=== PATIENT | female | born 1950 | race Hispanic/Latino ===

== ENCOUNTER 2016-11-08 18:06 | Inpatient (IN) | payer BC, MEDICARE ==
--- NOTE | 2016-11-08 18:11 | C.PDOC ---
History Of Present Illness <Cherelle Rivero - Last Filed: 11/08/16 18:44> <Josef Rowan - Last Filed: 11/08/16 19:58> 66 y/o female presents to the ED for evaluation. Per EMS, pt went to urgent care for SOB where they did EKG showing concern for STEMI so they called EMS for transport to ED for further evaluation. Pt states she went to urgent care to have her blood pressure checked, doesn't know baseline pressure and as she was walking into , she felt SOB as it was hot outside. Urgent care performed EKG and sent patient to ED for further evaluation. Pt reports anxiety but otherwise is asymptomatic. Denies leg pain or swelling, chest pain, fever or any other complaints. Pt admits to only drinking alcohol on Sunday's after school is out. No PMHx or PSHx. EKG from urgent care reviewed. [facility] EKG reviewed, NSR 120. (Cherelle Rivero) History Per: Patient History/Exam Limitations: no limitations Severity: Mild Recent travel outside of the [place]: No Additional History Per: EMS <Cherelle Rivero - Last Filed: 11/08/16 18:44> <RowanJosef Barcenas - Last Filed: 11/08/16 19:58> Time Seen by Provider: 11/08/16 18:08 Past Medical History Reviewed: Historical Data, Nursing Documentation, Vital Signs Family History: States: Unknown Family Hx <Cherelle Rivero - Last Filed: 11/08/16 18:44> Review Of Systems Except As Marked, All Systems Reviewed And Found Negative. Constitutional: Negative for: Fever Cardiovascular: Negative for: Chest Pain Respiratory: Negative for: Shortness of Breath Gastrointestinal: Negative for: Vomiting Musculoskeletal: Negative for: Leg Pain Psych: Positive for: Anxiety <Cherelle Rivero - Last Filed: 11/08/16 18:44> Physical Exam - Physical Exam Appears: Non-toxic, No Acute Distress Skin: Warm, Dry Head: Atraumatic, Normacephalic Neck: Normal, Normal ROM, Supple Chest: Symmetrical Cardiovascular: Rhythm Regular (tachycardic), No Murmur Respiratory: No Accessory Muscle Use, No Rales, Rhonchi (bilateral basilar rhonchi vs atelectasis), No Wheezing Gastrointestinal/Abdominal: Normal Exam, Soft, No Tenderness Extremity: Normal ROM, Pedal Edema (1+ pitting edema), No Calf Tenderness Pulses: Left Dorsalis Pedis: Normal, Right Dorsalis Pedis: Normal Neurological/Psych: Oriented x3, Normal Speech, Other (mild anxiety, calm and cooperative) <Cherelle Rivero - Last Filed: 11/08/16 18:44> ED Course And Treatment ECG: Interpreted By Me ECG Rhythm: Sinus Tachycardia (118), PVC - Radiology CXR: Interpreted by Me, Viewed By Me CXR Interpretation: Yes: Other (CHF) <Cherelle Rivero - Last Filed: 11/08/16 18:44> - Laboratory Results Result Diagrams: 11/08/16 18:38 11/08/16 18:57 <Josef Rowan R - Last Filed: 11/08/16 19:58> Progress - Data Reviewed Data Reviewed: Lab, Diagnostic imaging, EKG, Old records <Cherelle Rivero - Last Filed: 11/08/16 18:44> <Josef Rowna R - Last Filed: 11/08/16 19:58> - Re-Evaluation Re-evaluation Note: 11/08/16 18:31 D/W FAMILY : PT W HO DAILY ETOH USE, CHF. DOES NOT DESCRIBE KNOWN RISK FACTORS FOR PE. 11/08/16 19:00 S/O DR [facility], DISPO (Cherelle Rivero) Disposition <Cherelle Rivero - Last Filed: 11/08/16 18:44> Discussed With : Charo Posada Counseled Patient/Family Regarding: Diagnosis - Disposition Disposition Time: 19:56 - POA Present On Arrival: None <Josef Rowan R - Last Filed: 11/08/16 19:58> - Disposition Disposition: HOSPITALIZED Condition: STABLE - Clinical Impression Clinical Impression: CHF (congestive heart failure), Diabetes mellitus, NSTEMI (non-ST elevated myocardial infarction) - Scribe Statement The provider has reviewed the documentation as recorded by the Scribe <Cherelle Rivero - Last Filed: 11/08/16 18:44> <Josef Rowan R - Last Filed: 11/08/16 19:58> - Scribe Statement Sunil Carolina (Cherelle Rivero) Provider Attestation: All medical record entries made by the Scribe were at my direction and personally dictated by me. I have reviewed the chart and agree that the record accurately reflects my personal performance of the history, physical exam, medical decision making, and the department course for this patient. I have also personally directed, reviewed, and agree with the discharge instructions and disposition. (Cherelle Rivero) Physician Patient Turnover Patient Signed Over To: Josef Rowan Handoff Comments: [facility], [facility] <Cherelle Rivero - Last Filed: 11/08/16 18:44>
[2016-11-08] MEDS ORDERED: Aspirin 325 mg EC Tablets PO STA (18:28)
[2016-11-08 18:43] LABS: BASO # 0.1 K/uL (0.0-0.2); BASO % 0.7 % (0.0-2.0); EOS # 0.2 K/uL (0.0-0.7); EOS % 1.6 % (0.0-4.0); HEMATOCRIT 41.2 % (34.0-47.0); LYMPH # 1.5 K/uL (1.0-4.3); LYMPH % 15.2 % (20.0-40.0); MEAN CELL VOLUME 92.8 fL (81.0-99.0); MEAN CORPUSCULAR HEMOGLOBIN 30.3 pg (27.0-31.0); MEAN CORPUSCULAR HGB CONC 32.6 g/dL (33.0-37.0); MEAN PLATELET VOLUME 9.2 fL (7.2-11.7); MONO # 0.6 K/uL (0.0-0.8); MONO % 6.1 % (0.0-10.0); RED CELL DISTRIBUTION WIDTH 12.8 % (11.5-14.5); WHITE BLOOD COUNT 10.1 K/uL (4.8-10.8)
[2016-11-08 19:17] LABS: CHLORIDE 99 mmol/L (98-107)
[2016-11-08 19:18] LABS: POTASSIUM 4.8 mmol/L (3.6-5.2); SODIUM 136 mmol/L (132-148)
[2016-11-08 19:20] LABS: BILIRUBIN,TOTAL 0.6 mg/dL (0.2-1.3); GFR AFRICAN-AMERICAN > 60
[2016-11-08 19:21] LABS: ALB/GLOB RATIO 1.2 (1.0-2.1); ALCOHOL SERUM < 10 mg/dl (0-10); ALKALINE PHOSPHATASE 93 U/L (38-126); ALT/SGPT 36 U/L (9-52); AST/SGOT 22 U/L (14-36); BLOOD UREA NITROGEN 16 mg/dL (7-17); CALCIUM 9.3 mg/dl (8.6-10.4); CARBON DIOXIDE 26 mmol/L (22-30); GLUCOSE,RANDOM 320 mg/dL (65-105)
[2016-11-08] MEDS ORDERED: Nitroglycerin 2% Ointment Foilpak UD TOP STA (19:44)
[2016-11-08] MEDS ORDERED: (Novolin R) Insulin Human Regular 100 units/ml vial SC ONE (19:48)
[2016-11-08] MEDS ORDERED: Nitroglycerin 2% Ointment Foilpak UD TOP ONE (19:53)
[2016-11-08] MEDS ORDERED: (Novolin R) Insulin Human Regular 100 units/ml vial ONE (20:02)
[2016-11-08] MEDS ORDERED: Acetaminophen-Codeine 300/30 mg Tab PO PRN (22:13)
[2016-11-09] MEDS: Nitroglycerin 2% Ointment Foilpak UD TOP SCH ×4 (00:41→17:57)
[2016-11-09] MEDS ORDERED: Enoxaparin 80 mg Syringe SC STA (04:17)
[2016-11-09 07:34] LABS: BASO # 0.1 K/uL (0.0-0.2); BASO % 0.9 % (0.0-2.0); EOS # 0.2 K/uL (0.0-0.7); EOS % 2.1 % (0.0-4.0); HEMATOCRIT 36.6 % (34.0-47.0); LYMPH # 1.7 K/uL (1.0-4.3); LYMPH % 18.8 % (20.0-40.0); MEAN CORPUSCULAR HEMOGLOBIN 31.1 pg (27.0-31.0); MEAN CORPUSCULAR HGB CONC 33.8 g/dL (33.0-37.0); MONO # 0.6 K/uL (0.0-0.8); MONO % 6.2 % (0.0-10.0); RED CELL DISTRIBUTION WIDTH 12.8 % (11.5-14.5); WHITE BLOOD COUNT 9.1 K/uL (4.8-10.8)
[2016-11-09 07:41] LABS: CHLORIDE 105 mmol/L (98-107); POTASSIUM 3.9 mmol/L (3.6-5.2); SODIUM 141 mmol/L (132-148)
[2016-11-09 07:43] LABS: ALB/GLOB RATIO 1.2 (1.0-2.1); ALKALINE PHOSPHATASE 83 U/L (38-126); AST/SGOT 19 U/L (14-36); BILIRUBIN,TOTAL 0.8 mg/dL (0.2-1.3); BLOOD UREA NITROGEN 17 mg/dL (7-17); CARBON DIOXIDE 28 mmol/L (22-30); CHOLESTEROL 261 mg/dL (0-199); GFR AFRICAN-AMERICAN > 60; GLUCOSE,RANDOM 237 mg/dL (65-105); TOTAL PROTEIN 6.2 g/dL (6.3-8.3)
[2016-11-09 07:44] LABS: ALT/SGPT 30 U/L (9-52); CALCIUM 9.3 mg/dl (8.6-10.4)
[2016-11-09 07:59] LABS: THYROID STIMULATING HORMONE 1.06 mIU/L (0.46-4.68)
[2016-11-09] MEDS: (Novolin R) Insulin Human Regular 100 units/ml vial SC SCH ×4 (08:31→21:54)
--- NOTE | 2016-11-09 10:30 | RAD ---
PROCEDURE: CHEST RADIOGRAPH, 1 VIEW HISTORY: Shortness of breath COMPARISON: None available. FINDINGS: LUNGS: Moderate to severe venous congestion with bibasilar airspace opacities and bilateral pleural effusions. PLEURA: As above. CARDIOVASCULAR: Cardiomegaly. OSSEOUS STRUCTURES: Degenerative changes in the spine and shoulders. VISUALIZED UPPER ABDOMEN: Normal. OTHER FINDINGS: None. IMPRESSION: Moderate to severe venous congestion with bibasilar airspace opacities and bilateral pleural effusions.
--- NOTE | 2016-11-09 18:38 | CP.PCM.CON ---
History of Present Illness - History of Present Illness History of Present Illness: 66 y/o woman felt "bad" weak, fatigued, sob and leg edema went to ambulatory center had EKG and sent to ER. No fevers, chills, diaphoresis, /GI bleeding Patient has never followed up with PMD or had blood work in many years. PMHX: No reported problems, No prior [place] ro CVA * This admission HTN, DM, LIPIDS PSHX: none Social; quit smoking 2 weeks ago, + ETOH abuse, no IVDA: Lives alone, son nearby, DTR [facility]: independent with ADLS Works as a teaching aid Allergies; none ROS: alll 12 systems neg except that in HPI Review of Systems - Review of Systems All systems: reviewed and no additional remarkable complaints except Past Patient History - Past Medical History & Family History Past Medical History?: No - Past Social History Smoking Status: Former Smoker - MUSCULOSKELETAL/RHEUMATOLOGICAL Hx Falls: No - PSYCHIATRIC Hx Substance Use: No - SURGICAL HISTORY Hx Surgeries: No - ANESTHESIA Hx Anesthesia: No (denies) Meds Allergies/Adverse Reactions: Allergies Allergy/AdvReac Type Severity Reaction Status Date / Time No Known Allergies Allergy Unverified 11/08/16 18:16 - Medications Medications: Current Medications Acetaminophen (Tylenol 325mg Tab) 650 mg PO Q6 PRN PRN Reason: Headache Aspirin (Aspirin) 325 mg PO DAILY [facility] Last Admin: 11/09/16 09:48 Dose: 325 mg Heparin Sodium (Porcine) (Heparin) 5,000 units SC Q12 [facility] Last Admin: 11/09/16 09:48 Dose: 5,000 units Insulin Human Regular (Novolin R) 0 unit SC ACHS [facility] PRN Reason: Protocol Last Admin: 11/09/16 17:57 Dose: 2 unit Metoprolol Tartrate (Lopressor) 25 mg PO BID [facility] Last Admin: 11/09/16 17:56 Dose: 25 mg Nitroglycerin (Nitro-Bid 2% Oint) 1 ea TOP Q6 [facility] Last Admin: 11/09/16 17:57 Dose: 1 ea Physical Exam - Constitutional Appears: Older Than Stated Age - Head Exam Head Exam: ATRAUMATIC, NORMAL INSPECTION, NORMOCEPHALIC - Eye Exam Eye Exam: EOMI, Normal appearance, PERRL - ENT Exam ENT Exam: Mucous Membranes Moist - Neck Exam Neck exam: Positive for: Normal Inspection - Respiratory Exam Respiratory Exam: Clear to Auscultation Bilateral. absent: Rhonchi, Wheezes - Cardiovascular Exam Cardiovascular Exam: REGULAR RHYTHM, +S1, +S2. absent: +S4, Systolic Murmur - GI/Abdominal Exam GI & Abdominal Exam: Normal Bowel Sounds, Soft. absent: Tenderness - Extremities Exam Extremities exam: Positive for: normal inspection, pedal edema. Negative for: calf tenderness - Neurological Exam Neurological exam: Alert, Oriented x3 - Psychiatric Exam Psychiatric exam: Normal Affect, Normal Mood - Skin Skin Exam: Normal Color, Warm Results - Vital Signs Recent Vital Signs: Last Vital Signs Temp 98 F 11/09/16 15:55 Pulse 100 H 11/09/16 18:00 Resp 18 11/09/16 15:55 BP 122/75 11/09/16 18:00 Pulse Ox 97 11/09/16 15:55 - Labs Result Diagrams: 11/09/16 07:07 11/09/16 07:07 Labs: Laboratory Results - last 24 hr 11/08/16 11/09/16 11/09/16 21:44 02:47 06:39 WBC RBC Hgb Hct MCV MCH MCHC RDW Plt Count MPV Neut % (Auto) Lymph % (Auto) [place] % (Auto) Eos % (Auto) Baso % (Auto) Neut # Lymph # [place] # Eos # Baso # Sodium Potassium Chloride Carbon Dioxide Anion Gap BUN Creatinine Est GFR ( Amer) Est GFR (Non-Af Amer) POC Glucose (mg/dL) 273 H 239 H Random Glucose Hemoglobin A1c Calcium Total Bilirubin AST ALT Alkaline Phosphatase Total Creatine Kinase 50 CK-MB (Mass) 3.23 Troponin I, Quant 0.1890 H* Total Protein Albumin Globulin Albumin/Globulin Ratio Triglycerides Cholesterol LDL Cholesterol Direct HDL Cholesterol TSH 3rd Generation 11/09/16 11/09/16 11/09/16 07:07 07:07 07:07 WBC 9.1 RBC 3.98 Hgb 12.4 Hct 36.6 MCV 92.0 MCH 31.1 H MCHC 33.8 RDW 12.8 Plt Count 285 MPV 9.0 Neut % (Auto) 72.0 Lymph % (Auto) 18.8 L [place] % (Auto) 6.2 Eos % (Auto) 2.1 Baso % (Auto) 0.9 Neut # 6.6 Lymph # 1.7 [place] # 0.6 Eos # 0.2 Baso # 0.1 Sodium 141 Potassium 3.9 Chloride 105 Carbon Dioxide 28 Anion Gap 12 BUN 17 Creatinine 0.9 Est GFR ( Amer) > 60 Est GFR (Non-Af Amer) > 60 POC Glucose (mg/dL) Random Glucose 237 H Hemoglobin A1c 10.4 H Calcium 9.3 Total Bilirubin 0.8 AST 19 ALT 30 Alkaline Phosphatase 83 Total Creatine Kinase CK-MB (Mass) Troponin I, Quant Total Protein 6.2 L Albumin 3.4 L Globulin 2.8 Albumin/Globulin Ratio 1.2 Triglycerides 230 H Cholesterol 261 H LDL Cholesterol Direct 171 H HDL Cholesterol 41 TSH 3rd Generation 1.06 11/09/16 11/09/16 11/09/16 11:45 11:55 16:37 WBC RBC Hgb Hct MCV MCH MCHC RDW Plt Count MPV Neut % (Auto) Lymph % (Auto) [place] % (Auto) Eos % (Auto) Baso % (Auto) Neut # Lymph # [place] # Eos # Baso # Sodium Potassium Chloride Carbon Dioxide Anion Gap BUN Creatinine Est GFR ( Amer) Est GFR (Non-Af Amer) POC Glucose (mg/dL) 228 H 232 H Random Glucose Hemoglobin A1c Calcium Total Bilirubin AST ALT Alkaline Phosphatase Total Creatine Kinase 40 CK-MB (Mass) 2.64 Troponin I, Quant 0.1670 H* Total Protein Albumin Globulin Albumin/Globulin Ratio Triglycerides Cholesterol LDL Cholesterol Direct HDL Cholesterol TSH 3rd Generation - EKG Data EKG Interpreted by: Myself - Imaging and Cardiology Chest x-ray Status: Image reviewed by me Assessment & Plan - Assessment and Plan (Free Text) Assessment: 66 y/o with atypical CP, SOB, CHF sx's (leg edema, fatigue) Newly diagnosed DM and LIPIDS (never had blood testing or regular f/u in past) > EKG: NSR with chris-septal infarct old > Echo: severe LV dysfunction EF 25-30%, Restrictive diastolic dysfunction, mild -mod MR, Normal RV size and contractility > NTPBNP: 5550 > normal creat > A1c 10.4 sugars 250-300 Dx: Acute systolic CHF Mild troponin rise probably related to LV dysfunction Plan: > Diuresis with lasix 40 IV q12 > Change metoprolol to coreg 3.125 BID and titrate > Add aldactone 25 daily > aDD DIOVAN 40 IN NEXT 24-48 HOURS IF bp TOLERATES; > ADd ASA 81 > Add crestor 20 QD > Continue RX titration for DM > Life vest; >Low Na diet > fluid resticitions <1.5 liters > KEEP mG >2.0, MONITOR LYTES SPOKE WITH PATIENTS SON IN LAW AT HER REQUEST AND EXPLAINED TREATMENT PLANS Patient will need eventual cardiac cath once CHF is optimized: this can be done as outpatient
--- NOTE | 2016-11-09 22:31 | CARD ---
APPROVED REPORT EKG Measurement Heart [id number] [place] [id number] <Conclusion> Sinus rhythm with occasional premature ventricular complexes Anteroseptal infarct, age undetermined Abnormal ECG
--- NOTE | 2016-11-09 22:42 | CARD ---
APPROVED REPORT EKG Measurement Heart [id number] [place] [id number] <Conclusion> Sinus tachycardia with occasional premature ventricular complexes Anteroseptal infarct, age undetermined Abnormal ECG
--- NOTE | 2016-11-10 06:17 | CARD ---
APPROVED REPORT EXAM: Two-dimensional and M-mode echocardiogram with Doppler and color Doppler. Other Information Quality : GoodRhythm : NSR INDICATION Congestive Heart Failure NSTEMI RISK FACTORS Hypertension Diabetes 2D DIMENSIONS IVSd0.8 (0.7-1.1cm)Aortic Root (2D)3.0 (2.0-3.7cm) LVDd5.2 (3.9-5.9cm)PWd0.8 (0.7-1.1cm) LVDs4.7 (2.5-4.0cm)FS (%) 10.2 % LVEF (%)22.2 (>50%) M-Mode DIMENSIONS RVDd1.98 (2.1-3.2cm)Left Atrium (MM)3.23 (2.5-4.0cm) IVSd0.87 (0.7-1.1cm)Aortic Root3.05 (2.2-3.7cm) LVDd5.59 (4.0-5.6cm)Aortic Cusp Exc.1.98 (1.5-2.0cm) PWd0.66 (0.7-1.1cm)FS (%) 12 % LVDs4.89 (2.0-3.8cm)LVEF (%)26 (>50%) Mitral Valve MV E Dmywseyv66.3cm/sMV A Abnltgfe65.2cm/sE/A ratio1.3 TDI E/Lateral E'0.0E/Medial E'0.0 LEFT VENTRICLE The Left Ventricle is moderately dilated. There is normal left ventricular wall thickness. Left ventricle systolic function is severely impaired. The Ejection Fraction is 20-25%. No regional wall motion abnormalities noted. The left ventricular diastolic function is normal. No left ventricle thrombus noted on this study. There is no ventricular septal defect visualized. There is no left ventricular aneurysm. There is no mass noted in the left ventricle. RIGHT VENTRICLE The right ventricle is normal size. There is normal right ventricular wall thickness. The right ventricular systolic function is normal. ATRIA The left atrium size is normal. The right atrium size is normal. The interatrial septum is intact with no evidence for an atrial septal defect. AORTIC VALVE The aortic valve is normal in structure and function. There is trace to mild aortic regurgitation. There is no aortic valvular stenosis. There is no aortic valvular vegetation. MITRAL VALVE The mitral valve is normal in structure and function. There is no evidence of mitral valve prolapse. There is no mitral valve stenosis. There is no mitral valve regurgitation noted. TRICUSPID VALVE The tricuspid valve is normal in structure and function. There is no tricuspid valve regurgitation noted. There is no tricuspid valve prolapse or vegetation. There is no tricuspid valve stenosis. PULMONIC VALVE The pulmonary valve is normal in structure and function. There is no pulmonic valvular regurgitation. There is no pulmonic valvular stenosis. GREAT VESSELS The aortic root is normal in size. The ascending aorta is normal in size. The pulmonary artery is normal. The IVC is normal in size and collapses >50% with inspiration. PERICARDIAL EFFUSION The pericardium appears normal. There is no pleural effusion. <Conclusion> The Left Ventricle is moderately dilated. Left ventricle systolic function is severely impaired. The Ejection Fraction is 20-25%. There is no left ventricular aneurysm. The left atrium size is normal. The right ventricular systolic function is normal.
--- NOTE | 2016-11-10 06:39 | CARD ---
APPROVED REPORT EKG Measurement Heart [id number] [place] [id number] [id number] <Conclusion> Sinus tachycardia with premature supraventricular complexes Anteroseptal infarct, age undetermined Abnormal ECG
[2016-11-10] MEDS: (Novolin R) Insulin Human Regular 100 units/ml vial SC SCH ×4 (08:29→21:53)
[2016-11-10 08:40] LABS: CHLORIDE 106 mmol/L (98-107)
[2016-11-10 08:41] LABS: SODIUM 142 mmol/L (132-148)
[2016-11-10 08:44] LABS: BLOOD UREA NITROGEN 19 mg/dL (7-17); CALCIUM 9.4 mg/dl (8.6-10.4); CARBON DIOXIDE 25 mmol/L (22-30); GFR AFRICAN-AMERICAN > 60; GLUCOSE,RANDOM 179 mg/dL (65-105)
[2016-11-10] MEDS ORDERED: Enoxaparin 40 mg Syringe SC SCH (10:00)
--- NOTE | 2016-11-10 11:57 | CP.PCM.HP ---
History of Present Illness - History of Present Illness History of Present Illness: pt came to er for progresive sob 2 days Present on Admission - Present on Admission Any Indicators Present on Admission: No Review of Systems - Review of Systems Systems not reviewed;Unavailable: Acuity of Condition - Constitutional Constitutional: As Per HPI - EENT Eyes: As Per HPI Ears: As Per HPI - Breasts Breasts: As Per HPI - Cardiovascular Cardiovascular: Diaphoresis, Dyspnea - Respiratory Respiratory: Dyspnea - Gastrointestinal Gastrointestinal: As Per HPI - Genitourinary Genitourinary: As Per HPI - Reproductive: Female Reproductive:Female: As Per HPI - Menstruation Menstruation: As Per HPI - Musculoskeletal Musculoskeletal: As Per HPI - Neurological Neurological: As Per HPI - Psychiatric Psychiatric: As Per HPI - Hematologic/Lymphatic Hematologic: As Per HPI Past Patient History - Past Medical History & Family History Past Medical History?: No - Past Social History Smoking Status: Former Smoker - CARDIAC Hx Congestive Heart Failure: Yes - MUSCULOSKELETAL/RHEUMATOLOGICAL Hx Falls: No - PSYCHIATRIC Hx Substance Use: No - SURGICAL HISTORY Hx Surgeries: No - ANESTHESIA Hx Anesthesia: No (denies) Meds Allergies/Adverse Reactions: Allergies Allergy/AdvReac Type Severity Reaction Status Date / Time No Known Allergies Allergy Unverified 11/08/16 18:16 Physical Exam - Constitutional Appears: Non-toxic - Head Exam Head Exam: NORMAL INSPECTION - Eye Exam Eye Exam: Normal appearance Pupil Exam: NORMAL ACCOMODATION - ENT Exam ENT Exam: Mucous Membranes Moist - Neck Exam Neck exam: Positive for: Normal Inspection - Respiratory Exam Respiratory Exam: Rales - Cardiovascular Exam Cardiovascular Exam: REGULAR RHYTHM - GI/Abdominal Exam GI & Abdominal Exam: Normal Bowel Sounds - Extremities Exam Extremities exam: Positive for: normal inspection - Back Exam Back exam: NORMAL INSPECTION - Neurological Exam Neurological exam: Alert, Oriented x3 - Psychiatric Exam Psychiatric exam: Flat Affect - Skin Skin Exam: Warm Results - Vital Signs Recent Vital Signs: Last Vital Signs Temp 98.3 F 11/10/16 07:20 Pulse 91 H 11/10/16 08:44 Resp 17 11/10/16 07:20 BP 130/80 11/10/16 10:47 Pulse Ox 100 11/10/16 07:20 - Labs Result Diagrams: 11/09/16 07:07 11/10/16 07:11 Labs: Laboratory Results - last 24 hr 11/09/16 11/09/16 11/09/16 11:55 16:37 20:53 Sodium Potassium Chloride Carbon Dioxide Anion Gap BUN Creatinine Est GFR ( Amer) Est GFR (Non-Af Amer) POC Glucose (mg/dL) 232 H 239 H Random Glucose Calcium Total Creatine Kinase 40 CK-MB (Mass) 2.64 Troponin I, Quant 0.1670 H* 11/10/16 11/10/16 11/10/16 06:36 07:11 11:22 Sodium 142 Potassium 4.0 Chloride 106 Carbon Dioxide 25 Anion Gap 15 BUN 19 H Creatinine 0.9 Est GFR ( Amer) > 60 Est GFR (Non-Af Amer) > 60 POC Glucose (mg/dL) 209 H 220 H Random Glucose 179 H Calcium 9.4 Total Creatine Kinase CK-MB (Mass) Troponin I, Quant Assessment & Plan - Assessment and Plan (Free Text) Assessment: ac sob positive triponin chf dm Plan: as per orders - Date & Time Date: 11/10/16 Time: 11:59
--- NOTE | 2016-11-10 14:00 | NM ---
COMPARISON: 11/08/2016 TECHNIQUE: 19.6 mCi technetium 99-m Xe-133 Gas. 3.9 mCI technetium 99-m MAA administered intravenously. FINDINGS: VENTILATION COMPONENT: Normal. PERFUSION COMPONENT: Heterogeneous distribution of radionuclide. No geographic, segmental, lobar abnormalities apparent on the present examination. IMPRESSION: Low probability ventilation perfusion scan for pulmonary embolism.
[2016-11-11 04:59] LABS: HEMATOCRIT 38.8 % (34.0-47.0); MEAN CELL VOLUME 91.7 fL (81.0-99.0); MEAN CORPUSCULAR HEMOGLOBIN 30.5 pg (27.0-31.0); MEAN CORPUSCULAR HGB CONC 33.3 g/dL (33.0-37.0); RED CELL DISTRIBUTION WIDTH 12.5 % (11.5-14.5); WHITE BLOOD COUNT 7.1 K/uL (4.8-10.8)
[2016-11-11 05:09] LABS: CHLORIDE 100 mmol/L (98-107); POTASSIUM 3.6 mmol/L (3.6-5.2); SODIUM 139 mmol/L (132-148)
[2016-11-11 05:11] LABS: GFR AFRICAN-AMERICAN > 60
[2016-11-11 05:12] LABS: ALB/GLOB RATIO 1.2 (1.0-2.1); ALKALINE PHOSPHATASE 73 U/L (38-126); ALT/SGPT 28 U/L (9-52); AST/SGOT 15 U/L (14-36); BILIRUBIN,DIRECT 0.5 mg/dL (0.0-0.4); BILIRUBIN,TOTAL 0.5 mg/dL (0.2-1.3); BLOOD UREA NITROGEN 20 mg/dL (7-17); CALCIUM 8.8 mg/dl (8.6-10.4); CARBON DIOXIDE 29 mmol/L (22-30); GLUCOSE,RANDOM 145 mg/dL (65-105); TOTAL PROTEIN 5.9 g/dL (6.3-8.3)
[2016-11-11] MEDS: (Novolin R) Insulin Human Regular 100 units/ml vial SC SCH ×4 (08:30→22:18)
--- NOTE | 2016-11-11 11:33 | CP.PCM.PN ---
Subjective - Date & Time of Evaluation Date of Evaluation: 11/11/16 Time of Evaluation: 11:31 - Subjective Subjective: PT FEELS BETER no sob no chest pain Objective - Vital Signs/Intake and Output Vital Signs (last 24 hours): Temp Pulse Resp BP Pulse Ox 97.6 F 89 18 105/70 94 L 11/11/16 07:35 11/11/16 07:35 11/11/16 07:35 11/11/16 09:22 11/11/16 07:35 Intake and Output: 11/11/16 11/11/16 06:59 18:59 Intake Total 10 Balance 10 - Medications Medications: Current Medications Acetaminophen (Tylenol 325mg Tab) 650 mg PO Q6 PRN PRN Reason: Headache Aspirin (Aspirin) 325 mg PO DAILY [facility] Last Admin: 11/11/16 09:22 Dose: 325 mg Carvedilol (Coreg) 3.125 mg PO BID [facility] Last Admin: 11/11/16 09:22 Dose: 3.125 mg Furosemide (Lasix) 40 mg PO BID [facility] Last Admin: 11/11/16 09:22 Dose: 40 mg Heparin Sodium (Porcine) (Heparin) 5,000 units SC Q12 [facility] Last Admin: 11/11/16 09:22 Dose: 5,000 units Hydrocortisone (Cortizone 0.5%) 0 applic TOP BID [facility] Last Admin: 11/11/16 09:22 Dose: 1 applic Insulin Human Regular (Novolin R) 0 unit SC ACHS [facility] PRN Reason: Protocol Last Admin: 11/11/16 08:30 Dose: Not Given Rosuvastatin Calcium (Crestor) 20 mg PO HS [facility] Last Admin: 11/10/16 21:12 Dose: 20 mg Spironolactone (Aldactone) 25 mg PO DAILY [facility] Last Admin: 11/11/16 09:22 Dose: 25 mg - Labs Labs: 11/11/16 04:56 11/11/16 04:56 PT 10.8 SECONDS (9.7-12.2) 11/08/16 18:38 INR 1.0 11/08/16 18:38 APTT 31 SECONDS (21-34) 11/08/16 18:38 - Constitutional Appears: Non-toxic - Head Exam Head Exam: NORMAL INSPECTION - Eye Exam Eye Exam: Normal appearance Pupil Exam: NORMAL ACCOMODATION - ENT Exam ENT Exam: Normal Exam - Neck Exam Neck Exam: Full ROM - Respiratory Exam Respiratory Exam: Decreased Breath Sounds - Cardiovascular Exam Cardiovascular Exam: REGULAR RHYTHM - GI/Abdominal Exam GI & Abdominal Exam: Normal Bowel Sounds - Rectal Exam Rectal Exam: NORMAL INSPECTION - Exam Exam: NORMAL INSPECTION External exam: NORMAL EXTERNAL EXAM - Extremities Exam Extremities Exam: Normal Inspection - Back Exam Back Exam: NORMAL INSPECTION - Neurological Exam Neurological Exam: Oriented x3 - Psychiatric Exam Psychiatric exam: Normal Affect - Skin Skin Exam: Normal Color Assessment and Plan - Assessment and Plan (Free Text) Assessment: improved hyper glyceamia Plan: d/c home today on med f/u in my office [place]
[2016-11-12 01:19] VITALS: RESP 20
[2016-11-12] MEDS: (Novolin R) Insulin Human Regular 100 units/ml vial SC SCH (08:04)
[2016-11-12 08:35] VITALS: PULSE 88; TEMP 98.2; O2SAT 94
--- NOTE | 2016-11-12 10:28 | CP.PCM.DIS ---
Provider - Provider Date of Admission: 11/08/16 19:58 Attending physician: Charo Posada MD Primary care physician: pt feels joshua wants to go home had life vest put in today s/p ac chf joshua vss lung more cleare [id number] l l no oeadeama now bs hyperglyceamia pt will d/ c home on current med f/u by cardiology and me in my office ass ac chf dm Time Spent in preparation of Discharge (in minutes): 30 Hospital Course - Lab Results Lab Results: Most Recent Lab Values WBC 7.1 K/uL (4.8-10.8) 11/11/16 04:56 RBC 4.23 Mil/uL (3.80-5.20) 11/11/16 04:56 Hgb 12.9 g/dL (11.0-16.0) 11/11/16 04:56 Hct 38.8 % (34.0-47.0) 11/11/16 04:56 MCV 91.7 fL (81.0-99.0) 11/11/16 04:56 MCH 30.5 pg (27.0-31.0) 11/11/16 04:56 MCHC 33.3 g/dL (33.0-37.0) 11/11/16 04:56 RDW 12.5 % (11.5-14.5) 11/11/16 04:56 Plt Count 250 K/uL (130-400) 11/11/16 04:56 MPV 9.0 fL (7.2-11.7) 11/11/16 04:56 Neut % (Auto) 72.0 % (50.0-75.0) 11/09/16 07:07 Lymph % (Auto) 18.8 % (20.0-40.0) L 11/09/16 07:07 [place] % (Auto) 6.2 % (0.0-10.0) 11/09/16 07:07 Eos % (Auto) 2.1 % (0.0-4.0) 11/09/16 07:07 Baso % (Auto) 0.9 % (0.0-2.0) 11/09/16 07:07 Neut # 6.6 K/uL (1.8-7.0) 11/09/16 07:07 Lymph # 1.7 K/uL (1.0-4.3) 11/09/16 07:07 [place] # 0.6 K/uL (0.0-0.8) 11/09/16 07:07 Eos # 0.2 K/uL (0.0-0.7) 11/09/16 07:07 Baso # 0.1 K/uL (0.0-0.2) 11/09/16 07:07 PT 10.8 SECONDS (9.7-12.2) 11/08/16 18:38 INR 1.0 11/08/16 18:38 APTT 31 SECONDS (21-34) 11/08/16 18:38 Sodium 139 mmol/L (132-148) 11/11/16 04:56 Potassium 3.6 mmol/L (3.6-5.2) 11/11/16 04:56 Chloride 100 mmol/L (98-107) 11/11/16 04:56 Carbon Dioxide 29 mmol/L (22-30) 11/11/16 04:56 Anion Gap 13 (10-20) 11/11/16 04:56 BUN 20 mg/dL (7-17) H 11/11/16 04:56 Creatinine 0.9 MG/DL (0.7-1.2) 11/11/16 04:56 Est GFR ( Amer) > 60 11/11/16 04:56 Est GFR (Non-Af Amer) > 60 11/11/16 04:56 POC Glucose (mg/dL) 182 mg/dL (65-110) H 11/12/16 06:11 Random Glucose 145 mg/dL (65-105) H 11/11/16 04:56 Hemoglobin A1c 10.4 % (4.2-6.5) H 11/09/16 07:07 Calcium 8.8 mg/dl (8.6-10.4) 11/11/16 04:56 Total Bilirubin 0.5 mg/dL (0.2-1.3) 11/11/16 04:56 Direct Bilirubin 0.5 mg/dL (0.0-0.4) H 11/11/16 04:56 AST 15 U/L (14-36) 11/11/16 04:56 ALT 28 U/L (9-52) 11/11/16 04:56 Alkaline Phosphatase 73 U/L (38-126) 11/11/16 04:56 Total Creatine Kinase 40 U/L (30-135) 11/09/16 11:55 CK-MB (Mass) 2.64 ng/mL (0.0-3.38) 11/09/16 11:55 Troponin I 0.1580 ng/mL (0.00-0.120) H* 11/11/16 04:56 Troponin I, Quant 0.1670 ng/mL (0.00-0.120) H* 11/09/16 11:55 NT-Pro-B Natriuret Pep 5550 pg/mL (0-900) H 11/08/16 18:57 Total Protein 5.9 g/dL (6.3-8.3) L 11/11/16 04:56 Albumin 3.2 g/dL (3.5-5.0) L 11/11/16 04:56 Globulin 2.7 gm/dL (2.2-3.9) 11/11/16 04:56 Albumin/Globulin Ratio 1.2 (1.0-2.1) 11/11/16 04:56 Triglycerides 230 mg/dL (0-149) H 11/09/16 07:07 Cholesterol 261 mg/dL (0-199) H 11/09/16 07:07 LDL Cholesterol Direct 171 mg/dL (0-129) H 11/09/16 07:07 HDL Cholesterol 41 mg/dL (30-70) 11/09/16 07:07 TSH 3rd Generation 1.06 mIU/L (0.46-4.68) 11/09/16 07:07 Alcohol, Quantitative < 10 mg/dl (0-10) 11/08/16 18:57 Discharge Exam - Head Exam Head Exam: NORMAL INSPECTION Discharge Plan - Follow Up Plan Condition: STABLE Disposition: HOME/ ROUTINE Instructions: Spironolactone (By mouth), Furosemide (By mouth), Losartan (By mouth), Carvedilol (By mouth), Rosuvastatin (By mouth), Myocardial Infarction ( DC), Heart Failure (DC), Heart Healthy Diet (DC), Diabetes Mellitus Type 2 in Adults (DC), Meal Planning with Diabetes Exchanges (DC), Low Sodium Diet (DC) Referrals: Elijah Jimenez MD [Staff Provider] - Charo Posada MD [Staff Provider] -
[2016-11-12 10:30] VITALS: BP 102/69
--- NOTE | 2016-11-17 09:58 | PCM.HF ---
Heart Failure Core Measure - Heart Failure Ejection Fraction: Less Than 40 % (ef 26%, Pt was d/c by Dr Posada on Sunday) RYAN Inhibitor Prescribed: No Contraindication/Reason for not providing: renal dysfunction Beta-Melania Prescribed: Carvedilol Angiotensin II Receptor Melania Prescribed: No Contraindication/Reason for not providing: renal dysfunction AnticoagulationTherapy for Atrial Fibrillation/Atrialflutter: No Contraindication/Reason for not providing: no afib Aldosterone Antagonist Prescribed: No Contraindication/Reason for not providing: renal dysfunction Hydralazine Nitrate Prescribed: No Contraindication/Reason for not providing: pt has lifevest Implantable Cardioverter Defibrillator Therapy: No Contraindication/Reason for not providing: pt has lifevest Cardiac Resynchronization Therapy Prescribed: No Contraindication/Reason for not providing: pt has lifevest - Follow up Will be discharged to: Home Follow Up Date (must be within 7 days from discharge): 11/17/16 Follow Up Time: 09:00
== END 2016-11-12 11:33 | disposition home or self-care (01) | DRG 282 ==
LOC: C.ER 18:06 → C.9E 19:58 → C.6T 22:39
PROVIDERS: ADMIT Internal Medicine; ATTEND Internal Medicine
DX: I11.0 Hypertensive heart disease with heart failure (principal); I21.4 Non-ST elevation (NSTEMI) myocardial infarction; E11.65 Type 2 diabetes mellitus with hyperglycemia; I50.23 Acute on chronic systolic (congestive) heart failure; F41.9 Anxiety disorder, unspecified; Z87.891 Personal history of nicotine dependence; F10.10 Alcohol abuse, uncomplicated; Y90.0 Blood alcohol level of less than 20 mg/100 ml; Z79.4 Long term (current) use of insulin